=== PATIENT | female | born 1990 | race Caucasian/White ===

== ENCOUNTER 2021-08-07 11:40 | Emergency (ER) | payer BC ==
[~2021-08-07] VITALS: Ht 172.7 cm; Wt 113.6 kg
[2021-08-07 11:50] VITALS: BP 122/88; TEMP 98.3
[2021-08-07 13:30] VITALS: PULSE 93
== END 2021-08-07 13:30 | disposition home or self-care (01) ==
LOC: COL.ER 11:40
DX: M79.672 Pain in left foot (principal); F84.0 Autistic disorder